=== PATIENT | male | born 1940 | race Caucasian/White ===

== ENCOUNTER 2024-05-19 20:55 | Emergency (ER) | payer MEDICARE, SELFPAY ==
[2024-05-19 20:56] VITALS: BP 187/97; PULSE 54; RESP 16; TEMP 36.2; O2SAT 98; BMI 25.2
--- NOTE | 2024-05-19 22:52 | EKG12_ITS ---
Test Reason : WEAKNESS Blood Pressure : / mmHG Vent. Rate : 053 BPM Atrial Rate : 053 BPM P-R Int : 238 ms QRS Dur : 100 ms QT Int : 414 ms P-R-T Axes : 026 -06 025 degrees QTc Int : 388 ms Sinus bradycardia with 1st degree A-V block Otherwise normal ECG Confirmed by Heri Presley ([id number]), fashion editor KAYKAY LOPEZ ([id number]) on 05/23/2024 9:10:21 AM Referred By: Confirmed By:Heri Presley
[2024-05-19 23:00] VITALS: BP 157/90; PULSE 59; RESP 18
--- NOTE | 2024-05-19 23:06 | RAD_ITS ---
EXAM: XR CHEST, 1 VIEW CLINICAL INDICATION: chest pain TECHNIQUE: Frontal view of the chest. COMPARISON: No relevant prior studies available. FINDINGS: LUNGS AND PLEURAL SPACES: Small calcified granuloma at the left lower lobe. Mild subsegmental atelectasis versus scarring at the lung bases. No pneumothorax. No effusion. HEART: Unremarkable. Cardiac silhouette not enlarged. MEDIASTINUM: Central airways and mediastinal contour are unremarkable. BONES/JOINTS: Degenerative changes of the acromioclavicular joints and the glenohumeral joint with high riding right humeral head indicating a chronic full-thickness right-sided rotator cuff tear. No acute fracture. SOFT TISSUES: Unremarkable. VASCULATURE: Tortuous thoracic aorta. RAD/Chest 1 View (Portable) IMPRESSION: No acute cardiopulmonary disease. Electronically Signed: David Walker MD at 0:21 EDT ,
[2024-05-19 23:09] LABS: Absolute Lymphocyte Count 0.55 X10^3/uL (0.83-4.51); Absolute Neutrophil Count 2.8 X10^3/uL (2.0-7.7); Basophil# 0.03 X10^3/uL; Basophil% 0.7 % (0-1); Hematocrit 37.7 % (40-54); Hemoglobin 12.5 g/dL (13.0-16.5); Lymphocyte # 0.55 X10^3/ul (0.83-4.51); Lymphocyte % 12.9 % (19-41); Mean Corp Hgb Conc 33.2 g/dL (32-36); Mean Corpuscular Hgb 32.3 pg (27.0-32.0); Mean Corpuscular Volume 97.4 fL (80-94); Mean Platelet Vol. 8.9 fl (6.2-12.0); Monocyte# 0.56 X10^3/uL; Monocyte% 13.1 % (0-10); NRBC Flagged by Analyzer 0 % (0-5); Neutrophil % 65.8 % (47-70); POSITIVE DIFFERENTIAL YES; Platelet Count 194 K/mm3 (150-450); RBC Distribution Width CV 12.8 % (11.6-14.6); RBC Distribution Width SD 45.7 fl (35.1-43.9); Red Blood Count 3.87 M/mm3 (4.6-6.2); White Blood Count 4.3 K/mm3 (4.4-11.0)
[2024-05-19 23:29] LABS: Anion Gap 3 (5-15); BUN 23 mg/dL (7-18); Calcium,Total 9.1 mg/dL (8.5-10.1); Chloride 101 mmol/L (98-107); Creatinine, Serum 1.64 mg/dL (0.70-1.30); EST Glomerular Filtration Rate 43 mL/min (>60); Est Glom Filt Rate - Afr Amer 52 mL/min (>60); Glucose 97 mg/dL (74-106); Potassium 4.4 mmol/L (3.5-5.1); Sodium Level 135 mmol/L (136-145); Troponin-I HS 14 pg/mL (3.0-78.0)
--- NOTE | 2024-05-19 23:38 | EDS_ITS ---
HPI History of Present Illness Chief Complaint: Weakness Narrative Narrative: 83-year-old male presenting with concern he was in A-fib last evening. He is rate controlled with metoprolol and he is on Eliquis. He states his heart rate was about 117 last night when he checked it. He states his blood pressure has been up and down. Today he states he had a runny nose and a little bit of nasal congestion. He feels as if he might of come down with something. He feels quite rundown today. He took 2 naps. He denies chest pain or shortness of breath. He does note a cough. No fevers. No nausea or vomiting. No lightheadedness or dizziness. [facility] Medical History Hypercholesteremia Atrial fibrillation Home Medications ?Medication ?Instructions ?Recorded ?Last Taken ?Type amiodarone 100 mg tablet (Pacerone) 100 mg PO DAILY 05/19/24 Unknown History apixaban 5 mg tablet (Eliquis) 5 mg PO BID 05/19/24 Unknown History aspirin 81 mg tablet,delayed 81 mg PO DAILY 05/19/24 Unknown History release (Adult Low Dose Aspirin) atorvastatin 40 mg tablet 40 mg PO DAILY 05/19/24 Unknown History ezetimibe 10 mg tablet 10 mg PO DAILY 05/19/24 Unknown History finasteride 5 mg tablet 5 mg PO DAILY 05/19/24 Unknown History metoprolol succinate 25 mg 25 mg PO DAILY 05/19/24 Unknown History tablet,extended release 24 hr tamsulosin 0.4 mg capsule 0.4 mg PO DAILY 05/19/24 Unknown History Surgical History History of coronary artery stent placement Social History Smoking Status: Never smoker ROS ROS ED ROS Narrative Fatigue Constitutional Constitutional ED: Denies chills, fever(s) or sweats Eyes Eyes: Denies blurry vision or change in vision ENT ENT ED: Reports rhinorrhea; Denies ear pain or sore throat Cardiovascular Cardiovascular: Denies chest pain, palpitations or racing heartbeat Respiratory/Chest Respiratory/Chest: Denies cough, dyspnea or sputum Gastrointestinal Gastrointestinal: Denies abdominal pain, constipation, diarrhea, nausea or vomiting Genitourinary Genitourinary ED: Denies dysuria, hematuria or urinary frequency Musculoskeletal Musculoskeletal: Denies arthralgias, myalgias or neck pain Integumentary Denies abscess, Abrasions or rash Neurologic Neurologic: Denies headache(s), paresthesias or weakness Psychiatric Psychiatric: Denies anxiety, depression, suicidal ideation or suicidal thoughts Endocrine Endocrinology: Denies polydipsia or polyuria EXAM Physical Exam Const Vital Signs: 05/19/24 20:56 05/19/24 22:17 05/19/24 23:00 Temperature 97.2 F L Temperature Source Temporal Pulse Rate 54 L 59 L Respiratory Rate 16 18 Respiratory Pattern Normal Blood Pressure 187/97 H 157/90 H Blood Pressure Mean 127 110 Pulse Ox 98 Positive well nourished General Appearance ED: NAD HEENT Reports moist mucous membranes Eyes PERRL and EOMs intact bilaterally Chest Wall inspection of chest normal Resp normal respiratory effort and clear to auscultation bilaterally Cardio regular rhythm Rate: bradycardia GI normal to inspection, nondistended, normoactive bowel sounds Neuro oriented x3 and CN's II-XII intact bilaterally Sensorium / Orientation: alert Motor Exam: strength 5/5 throughout Psych mental status grossly normal Skin no rashes or lesions noted MDM MDM MDM Narrative Medical decision making narrative: 83-year-old male today presenting with concern he might of had an A-fib last night. He states his heart rate was only as high as 117 but he is usually slower than that. Differential includes A-fib, ACS, dysrhythmia, pneumonia, COVID, RSV, influenza, dehydration, anemia, electrolyte abnormalities. CBC will be obtained to assess white blood cell count, hemoglobin, platelets. BMP to assess renal function, electrolytes, glucose. High-sensitivity troponin and EKG to assess for ischemia/dysrhythmia. Chest x-ray to rule out pneumonia. CBC shows leukopenia with white blood cell count of 4.3. Hemoglobin 12.5. Platelets are normal at 194. High-sensitivity troponin is 14. EKG interpreted by myself shows a sinus bradycardia with first-degree AV block. COVID, influenza, RSV all negative. Chest x-ray interpreted by myself shows no acute cardiopulmonary process. Creatinine is elevated at 1.64 and GFR is 43 however there is no prerenal azotemia and I do not have any comparison lab work. Patient is from [place]. Patient does state that he has kidney issues and they monitor his labs. It does not look like he is dehydrated. Chest x-ray interpreted by myself shows no acute cardiopulmonary process. Patient feels well enough to go home. Workup ultimately negative. Return precautions were discussed. Impression: 1. Generalized weakness 2. Viral syndrome Lab Data Attestation: I reviewed the patient's lab results. Labs: Laboratory Results - last 24 hr 05/19/24 23:02 WBC 4.3 L RBC 3.87 L Hgb 12.5 L Hct 37.7 L MCV 97.4 H MCH 32.3 H MCHC 33.2 RDW Std Deviation 45.7 H RDW Coeff of Drake 12.8 Plt Count 194 MPV 8.9 Immature Gran % (Auto) 0.500 Neut % (Auto) 65.8 Lymph % (Auto) 12.9 L Dickens % (Auto) 13.1 H Eos % (Auto) 7.0 H Baso % (Auto) 0.7 Absolute Neuts (auto) 2.8 Absolute Lymphs (auto) 0.55 L Nucleated RBC % 0 Sodium 135 L Potassium 4.4 Chloride 101 Carbon Dioxide 31.0 Anion Gap 3 L BUN 23 H Creatinine 1.64 H Estim Creat Clear Calc 33.60 Est GFR (MDRD) Af Amer 52 L Est GFR (MDRD) Non-Af 43 L BUN/Creatinine Ratio 14.0 Glucose 97 Calcium 9.1 Troponin I High Sens 14 Discharge Plan Triage Chief Complaint: Weakness ED Provider: Ata Willis Dx/Rx/DC Orders Prescriptions: No Action atorvastatin 40 mg tablet 40 mg PO DAILY tamsulosin 0.4 mg capsule 0.4 mg PO DAILY metoprolol succinate 25 mg tablet extended release 24 hr 25 mg PO DAILY amiodarone [Pacerone] 100 mg tablet 100 mg PO DAILY Eliquis 5 mg tablet 5 mg PO BID aspirin [Adult Low Dose Aspirin] 81 mg tablet,delayed release (DR/EC) 81 mg PO DAILY finasteride 5 mg tablet 5 mg PO DAILY ezetimibe 10 mg tablet 10 mg PO DAILY Primary Care Provider: Care Physician,No Primary Referrals: Care Physician,No Primary [Primary Care Provider] - Print Language: Cambodian
[2024-05-20 00:26] VITALS: BP 144/94; PULSE 51; RESP 20; TEMP 36.4; O2SAT 98
== END 2024-05-20 00:26 | disposition home or self-care (01) ==
PROVIDERS: Emergency Provider Student in an Organized Health Care Education/Training Program; Visit Provider Student in an Organized Health Care Education/Training Program
DX: R53.1 Weakness (principal); I48.91 Unspecified atrial fibrillation; E78.00 Pure hypercholesterolemia, unspecified; B34.9 Viral infection, unspecified; Z79.899 Other long term (current) drug therapy; Z79.82 Long term (current) use of aspirin; Z79.01 Long term (current) use of anticoagulants; Z95.5 Presence of coronary angioplasty implant and graft
CPT/HCPCS: 71045; 80048; 84484; 85025; 87631; 93005; 99283; A4216